=== PATIENT | female | born 1990 | race Hispanic/Latino ===

== ENCOUNTER 2019-04-16 08:14 | Emergency (ER) | payer BC, MEDICARE ==
[~2019-04-16] VITALS: Ht 157.5 cm; Wt 64.9 kg
[~2019-04-16 08:14] MED LIST: LOESTRIN1 EAC1 PO; METOPROLOL TART50 MG PO; ULTRAM50 MG PO
[2019-04-16] MEDS ORDERED: HYDROCODONE/APAP 7.5MG-325MG 1 EA TAB PO ONE (08:45)
== END 2019-04-16 09:10 | disposition home or self-care (01) ==
LOC: ER 08:14
DX: K08.89 Other specified disorders of teeth and supporting structures (principal); K02.9 Dental caries, unspecified
CPT/HCPCS: 99283

== ENCOUNTER 2019-08-21 07:05 | Emergency (ER) | payer BC ==
[~2019-08-21] VITALS: Ht 157.5 cm; Wt 64.9 kg
[2019-08-21 08:32] LABS: CLARITY,URINE HAZY (CLEAR)
[2019-08-21 08:33] LABS: COLOR,URINE ORANGE (YELLOW)
[2019-08-21 08:35] LABS: PREGNANCY TEST, URINE NEGATIVE (NEGATIVE)
[2019-08-21 08:41] LABS: BACTERIA,URINE MANY /HPF; EPITHELIAL CELLS,URINE MODERATE /LPF; WBC,URINE (MAN) 21-50 /HPF (0-5)
[2019-08-21 08:48] VITALS: BP 119/96
== END 2019-08-21 09:25 | disposition home or self-care (01) ==
LOC: ER 07:05
DX: R30.0 Dysuria (principal); N30.91 Cystitis, unspecified with hematuria; Q87.40 Marfan syndrome, unspecified; F32.9 Major depressive disorder, single episode, unspecified
CPT/HCPCS: 81001; 81025; 99282

== ENCOUNTER 2024-06-21 16:59 | Emergency (ER) | payer SELFPAY ==
[~2024-06-21] VITALS: Ht 157.5 cm; Wt 64.9 kg
[2024-06-21 17:09] VITALS: PULSE 80; RESP 15; TEMP 99.1; O2SAT 100
[2024-06-21] MEDS ORDERED: ONDANSETRON ODT4 MG PO (17:14)
[2024-06-21] MEDS ORDERED: DICYCLOMINE HCL20 MG PO (17:14)
== END 2024-06-21 17:47 | disposition home or self-care (01) ==
LOC: ER 17:14
DX: R50.9 Fever, unspecified (principal); R19.7 Diarrhea, unspecified; Z15.89 Genetic susceptibility to other disease
CPT/HCPCS: 99282